=== PATIENT | female | born 1965 | race Caucasian/White ===

== ENCOUNTER 2016-11-04 15:52 | Emergency (ER) | payer BC ==
[2016-11-04] MEDS ORDERED: Sodium Chloride 0.9% 400 ML IV ONE (16:39)
[2016-11-04] MEDS ORDERED: Sodium Chloride 0.9% 1,000 ML IV SCH (16:45)
[2016-11-04] MEDS ORDERED: Sodium Chloride 0.9% 10 ML Syringe FLUSH PRN (16:45)
[2016-11-04] MEDS ORDERED: Cyproheptadine 4 MG Tab PO STA (16:46)
[2016-11-04] MEDS ORDERED: LORazepam 2 MG/ML MDV IVPUSH ONE (16:57)
[2016-11-04] MEDS ORDERED: LORazepam 2 MG/ML MDV ONE (16:57)
[2016-11-04 19:26] VITALS: BP 118/72
[2016-11-04] MEDS ORDERED: Cyproheptadine 4 MG Tab PO ONE (19:45)
[2016-11-04] MEDS ORDERED: Cyproheptadine 4 MG Tab ONE (19:45)
[2016-11-04] MEDS ORDERED: LORazepam 1 MG Tab PO ONE (19:46)
[2016-11-04] MEDS ORDERED: LORazepam 1 MG Tab ONE (19:46)
--- NOTE | 2016-11-05 09:37 | ER ---
DATE SEEN: 11/04/2016 TIME SEEN: The patient was seen at 1610. HISTORY OF PRESENT ILLNESS: This is a 51-year-old woman who presents with bizarre constellation of symptoms, "last two days of low voice", nausea since 0430 this a.m. She woke this morning not feeling very good. She had pizza, hamburger and spinach at home last night. They were all made with fresh ingredients. Fever of 100 this morning. She was seen in the clinic 10/30/2016, had a fever at that time. She feels lightheaded and feels like she is in a fog. On approximately 10/28/2016 the patient's Lexapro was changed from 10 mg to 20 mg daily. Since then, she has not felt well. She has a significant past medical history of intolerance to BuSpar, Paxil, and Effexor. MEDICATIONS: Atenolol 25 mg daily, levothyroxine 100 mcg daily. At one point, she had gone up to 130 mcg from 75 mg and she did not tolerate this; consequently 8 months ago was decreased to 100 mcg. Lexapro now 20 mg daily. ALLERGIES: She has extensive allergies which are all related to SSRIs. Lexapro, BuSpar, Zoloft, venlafaxine, all these cause tingling, numbness, blushing, surges of flushing, fast heart rate, and lightheadedness. The patient smokes half a pack of cigarettes a day for the past 40 years. Has a daily beer. Last night had a beer. Other significant allergies, a long list: Bacitracin, cefaclor, cephalexin, chloramphenicol, corticotropin, erythromycin base, methimazole, neomycin, penicillins, polymyxin, promethazine, and sulfa. REVIEW OF SYSTEMS: Negative except as noted above in the HPI. The patient denies having any fever. PHYSICAL EXAMINATION: VITAL SIGNS: Blood pressure 157/89, heart rate 73, respirations 20, oxygen saturation 100%, temperature 36.7 degrees. GENERAL: The patient has a low-pitched voice, has somewhat dark-skinned pigment of skin. She is attended by her significant other. HEENT: PERRLA intact. Pharynx without abnormality. No erythema. No cervical adenopathy. No bruits in neck. No thyromegaly. Absent thyroid, thyroid scar of thyroidectomy noted. LUNGS: Coarse breath sounds. No wheezes. HEART: S1, S2. No tachycardia. ABDOMEN: Mild voluntary guarding. Bowel sounds normal. No CVA percussion tenderness. Pelvic not done. Rectal not performed. EXTREMITIES: Lower extremities without pedal edema. No stasis dermatitis. NEURO: Deep tendon reflexes hypoactive upper and lower extremities. No evidence for hyperreflexia. Muscle strength in upper and lower extremities normal. While I was performing the exam, the patient she experienced a sudden onset of shortness of breath, flushing of her chest without diaphoresis, without tachycardia. She said, "Oh, I'm gonna lose it. I need to lie down." She talked loudly. She was very apprehensive and expressed a feeling of doom. She noted increased abdominal discomfort and increasing shortness of breath, although she was able to speak and talk to me. She did not have any stridor. No intraoral angioedema, pharyngeal erythema, wheezes, or rales in the lungs. At the onset, her symptoms were very suggestive of serotonin syndrome. However, the stigmata of tachycardia, hypertension, diaphoresis, and elevated temperature were absent, so I felt this was an adverse allergic reaction to the increased dose of Lexapro; she having a serotonin-like syndrome. I spoke to Poison Control. They felt strongly that she was not having a serotonin syndrome; however, could be allergy-related process. As I got off the phone, the patient had several recurrences of the same episode, with extensive anxiety. The patient has not used other medications or chemicals that would fit into the category of serotonergic or that would precipitate serotonin syndrome, i.e., amphetamines, cocaine, MDMA, L-DOPA, Ecstasy, Demerol, tramadol, pentazocine, tricyclics, Kurtis's wort, Zofran, metoclopramide, valproate, carbamazepine, sibutramine. The patient was treated with normal saline flush 500 mL, cyproheptadine 4 mg orally. Immediately after she had this, she became markedly agitated. She also experienced extensive shaking which began to relent in 2 minutes, almost as fast as they occurred, after she received 1 mg of lorazepam IV. Within a half hour, all her symptoms abated. This flushing, shortness of breath, and apprehension relented (she does not have a history of panic attacks or anxiety attacks). She was so please to feel better. She pass urine on several occasions, more than ususual, and she thanked me on many occasions and was so appreciative she was finally feeling better. ASSESSMENT: 1. Serotonin-like syndrome, symptoms with flushing, apprehension, lightheadedness, shortness of breath, difficulty breathing. 2. Allergic,type I, reaction. No evidence for anaphylaxis or angioedema. 3. Smoker. 4. Confusion secondary to the drug-mediated effect of Lexapro. 5. Four medicines which she does not tolerate, SSRI or NaSSA. 6. Status post thyroidectomy. 7. No evidence for thyroid storm. She is on Synthroid and her thyroid was removed. She at one time had Graves. 8. Rule out ectopic thyroid causing symptoms. I did not perform a thyroid scan, but that is something that may need to be pursued later if she has recurrent symptoms. She apparently had thyroid studies done at the clinic last week 9. The patient is not using Kurtis's Wort that would cause serotonin syndrome. PLAN: The patient will take one more dose of cyproheptadine at 2300 to 2400 hours this evening, 4 mg. Also she has Ativan available should she have recurrent spells that she experienced today. She needs a TSH and further thyroid studies; free T4 and free T3. Rule out ectopic thyroid causing hypothyroidism symptoms. There is no evidence for myocardial ischemia or myocardial infarction. Follow up with doctor in a week or earlier if worse. /[id number] MARIE/BABAR BRANDT
== END 2016-11-04 19:20 | disposition home or self-care (01) ==
LOC: FB.ED 15:52
DX: R41.0 Disorientation, unspecified (principal); R42 Dizziness and giddiness; R06.02 Shortness of breath; T78.40XA Allergy, unspecified, initial encounter; F17.200 Nicotine dependence, unspecified, uncomplicated
CPT/HCPCS: 80305; 81001; 93005; 96361; 96374; 99285; A9270; J2060; J7040; J7050

== ENCOUNTER 2017-04-21 04:56 | Emergency (ER) | payer BC ==
[2017-04-21] MEDS ORDERED: Ketorolac 60 MG/2 ML SDV IM ONE (05:09)
[2017-04-21] MEDS ORDERED: Morphine 2 MG/ML Syringe IM ONE (05:09)
[2017-04-21] MEDS ORDERED: Acetaminophen/oxyCODONE 325-5 MG Tab PO ONE (06:52)
--- NOTE | 2017-04-21 06:52 | EDM.PDOC ---
ED HPI GENERAL MEDICAL PROBLEM - General Chief Complaint: Upper Extremity Injury/Pain Stated Complaint: RT SIDE PAIN Time Seen by Provider: 04/21/17 04:56 Source of Information: Reports: Patient, Significant Other History Limitations: Reports: Physical Impairment - History of Present Illness INITIAL COMMENTS - FREE TEXT/NARRATIVE: 51 years old w f came to the ed with her SO 16 after she fell of a 6 foot ladder. She smokes 1 PPD, drinks 4 time a week. Pt is complaining of severe r rib and shoulder pain, refusing initially to be examined. No N/V/D, SOB or any other acute medical issue at this time. BP 130/84 pulse 94, Puls ox 97% on RA RR 17 Onset: Unknown/Unsure Onset Date: 04/20/17 Onset Time: 20:00 Duration: Hour(s): Location: Reports: Chest, Upper Extremity, Right Quality: Reports: Ache, Pressure, Stabbing Severity: Moderate right shoulder and back Pain Score (Numeric/FACES): 10 - Related Data Allergies Allergy/AdvReac Type Severity Reaction Status Date / Time bacitracin Allergy Other Verified 11/04/16 16:06 [From Neosporin ([id number])] bacitracin zinc Allergy Other Verified 11/04/16 16:06 [From Neosporin ([id number])] buspirone HCl [From BuSpar] Allergy Other Verified 11/04/16 16:06 cefaclor [From Ceclor] Allergy Other Verified 11/04/16 16:06 cephalexin Allergy Other Verified 11/04/16 16:06 chloramphenicol Allergy Other Verified 11/04/16 16:06 [From Chloromycetin] chloramphenicol sod succ Allergy Other Verified 11/04/16 16:06 [From Chloromycetin] corticotropin Allergy Other Verified 11/04/16 16:06 [From Acthar H.P.] erythromycin base Allergy Other Verified 11/04/16 16:06 escitalopram [From Lexapro] Allergy Other Verified 11/04/16 18:43 lorazepam [From Ativan] Allergy Difficulty Verified 04/21/17 07:20 Breathing methimazole Allergy Other Verified 11/04/16 16:06 neomycin sulfate Allergy Other Verified 11/04/16 16:06 [From Neosporin ([id number])] paroxetine HCl [From Paxil] Allergy Other Verified 11/04/16 16:06 Penicillins Allergy Other Verified 11/04/16 16:06 polymyxin B Allergy Other Verified 11/04/16 16:06 [From Neosporin ([id number])] promethazine HCl Allergy Other Verified 11/04/16 16:06 [From Phenergan] sertraline HCl [From Zoloft] Allergy Other Verified 11/04/16 16:06 Sulfa (Sulfonamide Allergy Other Verified 11/04/16 16:06 Antibiotics) venlafaxine HCl Allergy Other Verified 11/04/16 16:06 [From Effexor] allergic to all SSRI Allergy Other Uncoded 11/04/16 18:44 Home Meds: Home Meds Atenolol 25 mg PO DAILY 11/04/16 [History] Levothyroxine [Synthroid] 100 mcg PO DAILY 11/04/16 [History] Acetaminophen/oxyCODONE [Percocet 325-5 MG] 1 each PO Q6HR PRN #7 tab 04/21/17 [ Rx] Albuterol [IJD: Ventolin HFA] 2 puff INH .TWICE DAILY PRN #1 gm 04/21/17 [Rx] Ibuprofen [Motrin] 600 mg PO TID PRN #20 tab 04/21/17 [Rx] Past Medical History HEENT History: Reports: Impaired Vision, Other (See Below) Other HEENT History: WEARS EYEGLASSES Psychiatric History: Reports: Anxiety, Depression, Panic Attack Endocrine/Metabolic History: Reports: Hypothyroidism Other Endocrine/Metabolic History: Grave's Dse - Infectious Disease History Infectious Disease History: Reports: Chicken Pox, Measles, Mumps - Past Surgical History Endocrine Surgical History: Reports: Thyroidectomy Social & Family History - Family History Family Medical History: Noncontributory - Tobacco Use Smoking Status *Q: Current Every Day Smoker Years of Tobacco use: 30 Packs/Tins Daily: 1 Used Tobacco, but Quit: No Second Hand Smoke Exposure: Yes - Caffeine Use Caffeine Use: Reports: Coffee, Soda - Alcohol Use Days Per Week of Alcohol Use: 4 Number of Drinks Per Day: 4 Total Drinks Per Week: 16 - Recreational Drug Use Recreational Drug Use: No Review of Systems - Review of Systems Review Of Systems: See Below Constitutional: Reports: Weakness Eyes: Reports: No Symptoms Ears: Reports: No Symptoms Nose: Reports: No Symptoms Mouth/Throat: Reports: No Symptoms Respiratory: Reports: Pleuritic Chest Pain Cardiovascular: Reports: No Symptoms GI/Abdominal: Reports: No Symptoms Genitourinary: Reports: No Symptoms Musculoskeletal: Reports: Muscle Pain Skin: Reports: No Symptoms Neurological: Reports: No Symptoms Psychiatric: Reports: No Symptoms ED EXAM, GENERAL - Physical Exam Exam: See Below Exam Limited By: Other (rib pain) General Appearance: Alert, WD/WN, Mild Distress, Thin Eye Exam: Bilateral Eye: Normal Inspection Ears: Normal External Exam Ear Exam: Bilateral Ear: Auricle Normal Nose: Normal Inspection, Normal Mucosa, No Blood Throat/Mouth: Normal Inspection, Normal Lips, Normal Teeth Head: Atraumatic, Normocephalic Neck: Normal Inspection, Supple, Non-Tender, Full Range of Motion Respiratory/Chest: Decreased Breath Sounds (due to rip pain r side) Cardiovascular: Normal Peripheral Pulses, Regular Rate, Rhythm, No Edema Peripheral Pulses: 1+: Radial (L), Radial (R) GI/Abdominal: Normal Bowel Sounds, Soft, Non-Tender, No Organomegaly (Female) Exam: Deferred Rectal (Female) Exam: Deferred Back Exam: Normal Inspection, Full Range of Motion Extremities: Normal Inspection, Normal Range of Motion, Non-Tender, No Pedal Edema Neurological: Alert, Oriented, CN II-XII Intact, Normal Cognition, No Motor/ Sensory Deficits, Other Psychiatric: Normal Affect, Normal Mood Skin Exam: Warm, Dry, Intact, Normal Color, No Rash Lymphatic: No Adenopathy Course - Vital Signs Text/Narrative:: 51 years old w f came to the ed with her SO 16 after she fell of a 6 foot ladder. She smokes 1 PPD, drinks 4 time a week. Pt is complaining of severe r rib and shoulder pain, refusing initially to be examined. No N/V/D, SOB or any other acute medical issue at this time. BP 130/84 pulse 94, Puls ox 97% on RA RR 17 PE: Righ 7th rib tenderness. r shoulder tenderness Imaging: non displaced right 7th rib. R sided atelectasis Impression: non displaced right 7th rib. R sided atelectasis Tx: Morphine, Toradol, Percocet, Sprometer, Ice application Reexam: Improved Plan: D/C with instructions Last Recorded V/S: Last Vital Signs Temp 36.4 C 04/21/17 05:00 Pulse 93 04/21/17 07:30 Resp 16 04/21/17 07:30 BP 117/61 04/21/17 07:30 Pulse Ox 95 04/21/17 07:30 - Orders/Labs/Meds Orders: Active Orders 24 hr Category Date Time Status Cooling Warming Measures [RC] ASDIRECTED Care 04/21/17 05:13 Active Incentive Spirometry [RT Incentive Spirometry] [RC] Care 04/21/17 07:24 Active ASDIRECTED Ribs 2V w Chest Rt [CR] Stat Exams 04/21/17 05:10 Taken Shoulder Comp Rt [CR] Stat Exams 04/21/17 05:55 Taken Ice Bag [Ice Therapy] [OM.PC] Routine Oth 04/21/17 05:13 Ordered Meds: Medications Discontinued Medications Generic Name Dose Route Start Last Admin Trade Name Freq PRN Reason Stop Dose Admin Ketorolac Tromethamine 60 mg 04/21/17 05:09 04/21/17 05:21 Toradol IM 04/21/17 05:10 60 mg ONETIME ONE Administration Morphine Sulfate 2 mg 04/21/17 05:09 04/21/17 05:20 Morphine IM 04/21/17 05:10 2 mg ONETIME ONE Administration Oxycodone/Acetaminophen 2 tab 04/21/17 06:52 04/21/17 07:00 Percocet 325-5 Mg PO 04/21/17 06:53 2 tab ONETIME ONE Administration Departure - Departure Time of Disposition: 07:31 Disposition: Home, Self-Care 01 Condition: Good Clinical Impression: Atelectasis of right lung Right rib fracture Qualifiers: Encounter type: initial encounter Rib fracture type: single rib Fracture type: closed Qualified Code(s): S22.31XA - Fracture of one rib, right side, initial encounter for closed fracture - Discharge Information Prescriptions: Acetaminophen/oxyCODONE [Percocet 325-5 MG] 1 each PO Q6HR PRN #7 tab PRN Reason: for severe pain only Albuterol [IJD: Ventolin HFA] 2 puff INH .TWICE DAILY PRN #1 gm PRN Reason: cough, sob Ibuprofen [Motrin] 600 mg PO TID PRN #20 tab PRN Reason: fro moderate pain Instructions: Rib Fracture, [id number] Referrals: PCP,None [Primary Care Provider] - Forms: ED Department Discharge, ED Return to Work/School Form Additional Instructions: Please take Percocet for severe pain only, Motrin for moderate pain, please use spirometer as recommended, follow instructions for rib fx's. Please follow up with your doctor in 3 days, please come back to the ed if your symptoms get worse acutely - My Orders Last 24 Hours: My Active Orders 04/21/17 05:10 Ribs 2V w Chest Rt [CR] Stat 04/21/17 05:13 Cooling Warming Measures [RC] ASDIRECTED Ice Bag [Ice Therapy] [OM.PC] Routine 04/21/17 05:55 Shoulder Comp Rt [CR] Stat 04/21/17 07:24 Incentive Spirometry [RT Incentive Spirometry] [RC] ASDIRECTED - Assessment/Plan Last 24 Hours: My Active Orders 04/21/17 05:10 Ribs 2V w Chest Rt [CR] Stat 04/21/17 05:13 Cooling Warming Measures [RC] ASDIRECTED Ice Bag [Ice Therapy] [OM.PC] Routine 04/21/17 05:55 Shoulder Comp Rt [CR] Stat 04/21/17 07:24 Incentive Spirometry [RT Incentive Spirometry] [RC] ASDIRECTED
[2017-04-21 07:40] VITALS: BP 117/61
--- NOTE | 2017-04-21 10:44 | CR ---
INDICATION: Trauma. RIGHT SHOULDER: Three views of the right shoulder revealed mild degenerative changes at the acromioclavicular joint with no evidence of a fracture, dislocation, or other significant bone or joint abnormality. KARLY
== END 2017-04-21 07:50 | disposition home or self-care (01) ==
LOC: FB.ED 04:56
DX: S22.31XA Fracture of one rib, right side, initial encounter for closed fracture (principal); H54.7 Unspecified visual loss; F17.210 Nicotine dependence, cigarettes, uncomplicated; J98.11 Atelectasis; E03.9 Hypothyroidism, unspecified; Z88.8 Allergy status to other drugs, medicaments and biological substances; Z79.899 Other long term (current) drug therapy; Z88.2 Allergy status to sulfonamides; Z88.0 Allergy status to penicillin; W11.XXXA Fall on and from ladder, initial encounter; Z88.1 Allergy status to other antibiotic agents
CPT/HCPCS: 71101; 73030; 94150; 96372; 99283; A9270; J1885; J2270

== ENCOUNTER 2017-05-25 19:24 | Emergency (ER) | payer BC ==
[2017-05-25 20:36] VITALS: BP 153/89
[2017-05-25] MEDS ORDERED: Diphtheria,Pertussis(Acell),Tetanus Vaccine 0.5 ML SDV IM ONE (20:40)
--- NOTE | 2017-05-25 20:57 | EDM.PDOC ---
ED HPI GENERAL MEDICAL PROBLEM - General Stated Complaint: THUMP LAC Time Seen by Provider: 05/25/17 20:53 Source of Information: Reports: Patient History Limitations: Reports: No Limitations - History of Present Illness INITIAL COMMENTS - FREE TEXT/NARRATIVE: c/o R thumb lac pt cut thumb with a knife, Td unknown, does not want sutures, good apposition of margins Right Hand Pain Score (Numeric/FACES): 4 - Related Data Allergies Allergy/AdvReac Type Severity Reaction Status Date / Time bacitracin Allergy Other Verified 11/04/16 16:06 [From Neosporin ([id number])] bacitracin zinc Allergy Other Verified 11/04/16 16:06 [From Neosporin ([id number])] buspirone HCl [From BuSpar] Allergy Other Verified 11/04/16 16:06 cefaclor [From Ceclor] Allergy Other Verified 11/04/16 16:06 cephalexin Allergy Other Verified 11/04/16 16:06 chloramphenicol Allergy Other Verified 11/04/16 16:06 [From Chloromycetin] chloramphenicol sod succ Allergy Other Verified 11/04/16 16:06 [From Chloromycetin] corticotropin Allergy Other Verified 11/04/16 16:06 [From Acthar H.P.] erythromycin base Allergy Other Verified 11/04/16 16:06 escitalopram [From Lexapro] Allergy Other Verified 11/04/16 18:43 lorazepam [From Ativan] Allergy Difficulty Verified 04/21/17 07:20 Breathing methimazole Allergy Other Verified 11/04/16 16:06 neomycin sulfate Allergy Other Verified 11/04/16 16:06 [From Neosporin ([id number])] paroxetine HCl [From Paxil] Allergy Other Verified 11/04/16 16:06 Penicillins Allergy Other Verified 11/04/16 16:06 polymyxin B Allergy Other Verified 11/04/16 16:06 [From Neosporin ([id number])] promethazine HCl Allergy Other Verified 11/04/16 16:06 [From Phenergan] sertraline HCl [From Zoloft] Allergy Other Verified 11/04/16 16:06 Sulfa (Sulfonamide Allergy Other Verified 11/04/16 16:06 Antibiotics) venlafaxine HCl Allergy Other Verified 11/04/16 16:06 [From Effexor] allergic to all SSRI Allergy Other Uncoded 11/04/16 18:44 Home Meds: Home Meds Atenolol 25 mg PO DAILY 11/04/16 [History] Levothyroxine [Synthroid] 100 mcg PO DAILY 11/04/16 [History] Acetaminophen/oxyCODONE [Percocet 325-5 MG] 1 each PO Q6HR PRN #7 tab 04/21/17 [ Rx] Albuterol [IJD: Ventolin HFA] 2 puff INH .TWICE DAILY PRN #1 gm 04/21/17 [Rx] Ibuprofen [Motrin] 600 mg PO TID PRN #20 tab 04/21/17 [Rx] Past Medical History HEENT History: Reports: Impaired Vision, Other (See Below) Other HEENT History: WEARS EYEGLASSES Psychiatric History: Reports: Anxiety, Depression, Panic Attack Endocrine/Metabolic History: Reports: Hypothyroidism Other Endocrine/Metabolic History: Grave's Dse - Infectious Disease History Infectious Disease History: Reports: Chicken Pox, Measles, Mumps - Past Surgical History Endocrine Surgical History: Reports: Thyroidectomy Social & Family History - Family History Family Medical History: Noncontributory - Tobacco Use Smoking Status *Q: Current Every Day Smoker Years of Tobacco use: 30 Packs/Tins Daily: 1 Used Tobacco, but Quit: No Second Hand Smoke Exposure: Yes - Caffeine Use Caffeine Use: Reports: Coffee, Soda - Alcohol Use Days Per Week of Alcohol Use: 4 Number of Drinks Per Day: 4 Total Drinks Per Week: 16 - Recreational Drug Use Recreational Drug Use: No ED ROS GENERAL - Review of Systems Review Of Systems: See Below Constitutional: Reports: No Symptoms HEENT: Reports: No Symptoms Respiratory: Reports: No Symptoms Cardiovascular: Reports: No Symptoms Endocrine: Reports: No Symptoms GI/Abdominal: Reports: No Symptoms : Reports: No Symptoms Musculoskeletal: Reports: No Symptoms Skin: Reports: Wound Neurological: Reports: No Symptoms Psychiatric: Reports: No Symptoms Hematologic/Lymphatic: Reports: No Symptoms Immunologic: Reports: No Symptoms ED EXAM, SKIN/RASH Exam: See Below Exam Limited By: No Limitations General Appearance: Alert Skin: Other (R thumb with curvilinear 1 cm lac over fingerpad, edges well apposed, did not allow flap to be peeled back, adhering well with good alignment and no swell) Course - Vital Signs Last Recorded V/S: Last Vital Signs Temp 36.6 C 05/25/17 20:34 Pulse 86 05/25/17 20:34 Resp 19 05/25/17 20:34 BP 153/89 H 05/25/17 20:34 Pulse Ox 98 05/25/17 20:34 - Orders/Labs/Meds Orders: Active Orders 24 hr Category Date Time Status Vaccines to be Administered [RC] PER UNIT ROUTINE Care 05/25/17 20:41 Active Meds: Medications Discontinued Medications Generic Name Dose Route Start Last Admin Trade Name Jus PRN Reason Stop Dose Admin Diphtheria/Tetanus/Acell Pertussis 0.5 ml 05/25/17 20:40 Adacel IM 05/25/17 20:41 .ONCE ONE Departure - Departure Time of Disposition: 20:55 Disposition: Home, Self-Care 01 Condition: Good Clinical Impression: Thumb laceration - Discharge Information Referrals: Tea Villarreal, OTOLARYNGOLOGY PHYSICIAN [Primary Care Provider] - Additional Instructions: Keep clean and dry and covered with dressing. Do not put pressure on thumb for one week to allow it to heal. While risk of infection is low, see a physician the same day for any increase in redness, pain, swelling, warmth, fever or drainage. Do not get wet for a week. Allow steri strips to fall off on their own when they are ready. Call your Physician or Return to Emergency Department if: * Your condition worsens in any way. * You develop fever greater than 100.4. * You have vomitting that does not stop with medications. * You have pain that is not controlled with medications. - My Orders Last 24 Hours: My Active Orders 05/25/17 20:41 Vaccines to be Administered [RC] PER UNIT ROUTINE - Assessment/Plan Last 24 Hours: My Active Orders 05/25/17 20:41 Vaccines to be Administered [RC] PER UNIT ROUTINE
== END 2017-05-25 21:38 | disposition home or self-care (01) ==
LOC: FB.ED 19:24
DX: S61.011A Laceration without foreign body of right thumb without damage to nail, initial encounter (principal); F32.9 Major depressive disorder, single episode, unspecified; F41.9 Anxiety disorder, unspecified; F17.210 Nicotine dependence, cigarettes, uncomplicated; E03.9 Hypothyroidism, unspecified; Z88.8 Allergy status to other drugs, medicaments and biological substances; Z88.0 Allergy status to penicillin; Z88.2 Allergy status to sulfonamides; Z79.899 Other long term (current) drug therapy; Z23 Encounter for immunization; Z88.1 Allergy status to other antibiotic agents; W26.0XXA Contact with knife, initial encounter
CPT/HCPCS: 90471; 90715; 99282

== ENCOUNTER 2020-08-27 23:49 | Emergency (ER) | payer BC ==
--- NOTE | 2020-08-28 00:18 | EDM.PDOC ---
ED HPI GENERAL MEDICAL PROBLEM - General Chief Complaint: Genitourinary Problem Stated Complaint: BLADDER INFECTION Time Seen by Provider: 08/28/20 03:44 Source of Information: Reports: Patient History Limitations: Reports: No Limitations - History of Present Illness INITIAL COMMENTS - FREE TEXT/NARRATIVE: 55 yo Female who presented to the ER with h/o increased Frequency of raymond turition, urgency and hematuria. Started earlier today and got progressively worse. Also c/o suprapubic discomfort which she rates as 10/10. No fever, chest pain. She has had UTI before but reports that current symptoms are worse. No Flank pain. Presented to the ER due to worsening symptoms. Onset: Other (started yesterday) Onset Date: 08/27/20 Duration: Day(s): (started yesterday), Constant, Getting Worse Location: Reports: Pelvis Quality: Reports: Burning Severity: Severe Associated Symptoms: Reports: Nausea/Vomiting burning upon urination Pain Score (Numeric/FACES): 9 - Related Data Allergies Allergy/AdvReac Type Severity Reaction Status Date / Time bacitracin Allergy Other Verified 08/28/20 00:03 [From Neosporin ([id number])] bacitracin zinc Allergy Other Verified 08/28/20 00:03 [From Neosporin ([id number])] buspirone HCl [From BuSpar] Allergy Other Verified 08/28/20 00:03 cefaclor [From Ceclor] Allergy Other Verified 08/28/20 00:03 cephalexin Allergy Other Verified 08/28/20 00:03 chloramphenicol Allergy Other Verified 08/28/20 00:03 [From Chloromycetin] chloramphenicol sod succ Allergy Other Verified 08/28/20 00:03 [From Chloromycetin] corticotropin Allergy Other Verified 08/28/20 00:03 [From Acthar H.P.] erythromycin base Allergy Other Verified 08/28/20 00:03 escitalopram [From Lexapro] Allergy Other Verified 08/28/20 00:03 lorazepam [From Ativan] Allergy Difficulty Verified 08/28/20 00:03 Breathing methimazole Allergy Other Verified 08/28/20 00:03 neomycin sulfate Allergy Other Verified 08/28/20 00:03 [From Neosporin ([id number])] paroxetine HCl [From Paxil] Allergy Other Verified 08/28/20 00:03 Penicillins Allergy Other Verified 08/28/20 00:03 polymyxin B Allergy Other Verified 08/28/20 00:03 [From Neosporin ([id number])] promethazine HCl Allergy Other Verified 08/28/20 00:03 [From Phenergan] sertraline HCl [From Zoloft] Allergy Other Verified 08/28/20 00:03 Sulfa (Sulfonamide Allergy Other Verified 08/28/20 00:03 Antibiotics) venlafaxine HCl Allergy Other Verified 08/28/20 00:03 [From Effexor] allergic to all SSRI Allergy Other Uncoded 11/04/16 18:44 Home Meds: Home Meds Levothyroxine [Synthroid] 100 mcg PO DAILY 11/04/16 [History] Ibuprofen [Motrin] 600 mg PO TID PRN #20 tab 04/21/17 [Rx] hydrOXYzine HCL [hydrOXYzine] 10 mg PO Q6H PRN #5 tab 08/13/18 [Rx] FLUoxetine HCl [Prozac] 20 mg PO DAILY 08/28/20 [History] Meloxicam 15 mg PO DAILY 08/28/20 [History] Past Medical History HEENT History: Reports: Impaired Vision, Other (See Below) Other HEENT History: WEARS EYEGLASSES Cardiovascular History: Reports: Hypertension Respiratory History: Reports: Other (See Below) Other Respiratory History: chronic smoker since 16 years old and consumes 1 pack a day. Gastrointestinal History: Reports: GERD BREAD PANNER History: Reports: Other BREAD PANNER History: Musculoskeletal History: Reports: Arthritis, Fracture Other Musculoskeletal History: Hx fx L rx ribs Neurological History: Reports: Concussion Psychiatric History: Reports: Anxiety, Depression, Panic Attack Endocrine/Metabolic History: Reports: Hypothyroidism, Other (See Below) Other Endocrine/Metabolic History: Grave's Dse - Infectious Disease History Infectious Disease History: Reports: Chicken Pox, Measles, Mumps - Past Surgical History HEENT Surgical History: Reports: Naso-Sinus Surgery, Oral Surgery Cardiovascular Surgical History: Reports: None GI Surgical History: Reports: Colonoscopy, EGD Endocrine Surgical History: Reports: Thyroidectomy Social & Family History - Family History Family Medical History: No Pertinent Family History - Tobacco Use Tobacco Use Status *Q: Current Every Day Tobacco User Years of Tobacco use: 39 Packs/Tins Daily: 1 Second Hand Smoke Exposure: Yes - Caffeine Use Caffeine Use: Reports: Coffee - Alcohol Use Days Per Week of Alcohol Use: 7 Number of Drinks Per Day: 8 Total Drinks Per Week: 56 - Recreational Drug Use Recreational Drug Use: No ED ROS GENERAL - Review of Systems Review Of Systems: See Below Constitutional: Reports: Malaise, Weakness HEENT: Reports: No Symptoms Respiratory: Reports: No Symptoms Cardiovascular: Reports: No Symptoms Endocrine: Reports: No Symptoms GI/Abdominal: Reports: Nausea, Vomiting : Reports: Dysuria, Frequency, Hematuria, Urgency Musculoskeletal: Reports: No Symptoms Skin: Reports: No Symptoms Neurological: Reports: No Symptoms Psychiatric: Reports: No Symptoms Hematologic/Lymphatic: Reports: No Symptoms Immunologic: Reports: No Symptoms ED EXAM, RENAL/ - Physical Exam Exam: See Below Exam Limited By: No Limitations General Appearance: Alert, WD/WN, No Apparent Distress Eye Exam: Bilateral Eye: PERRL Ears: Normal External Exam, Normal Canal, Hearing Grossly Normal, Normal TMs Nose: Normal Inspection, Normal Mucosa, No Blood Throat/Mouth: Normal Inspection, Normal Lips, Normal Teeth, Normal Oropharynx Head: Atraumatic, Normocephalic Neck: Normal Inspection, Supple, Non-Tender, Full Range of Motion Respiratory/Chest: No Respiratory Distress, Lungs Clear, Normal Breath Sounds Cardiovascular: Normal Peripheral Pulses, Regular Rate, Rhythm, No Edema, No Gallop, No JVD GI/Abdominal: Normal Bowel Sounds, Soft, Non-Tender, No Organomegaly Back Exam: Normal Inspection, Full Range of Motion Extremities: Normal Inspection, Normal Range of Motion, Non-Tender, No Pedal Edema Neurological: Alert, Oriented, CN II-XII Intact, Normal Cognition, Normal Gait Psychiatric: Normal Affect, Normal Mood Skin Exam: Warm, Dry, Intact, Normal Color, No Rash Lymphatic: No Adenopathy Course - Vital Signs Last Recorded V/S: Last Vital Signs Temp 36.4 C 08/28/20 04:00 Pulse 88 08/28/20 04:00 Resp 16 08/28/20 04:00 BP 118/75 08/28/20 04:00 Pulse Ox 98 08/28/20 04:00 - Orders/Labs/Meds Orders: Active Orders 24 hr Category Date Time Status Abdomen Pelvis wo Cont [CT] Stat Exams 08/28/20 00:32 Taken CULTURE URINE [RM] Stat Lab 08/28/20 00:16 Received Labs: Laboratory Tests 08/27/20 08/28/20 08/28/20 Range/Units 23:53 00:40 00:40 WBC 12.5 H (3.0-10.3) x10-3/uL RBC 4.54 (3.60-5.20) x10(6)uL Hgb 14.1 (11.4-15.5) g/dL Hct 42.4 (34.2-48.2) % MCV 93.5 (76.7-100.5) fL MCH 31.0 (23.9-33.9) pg MCHC 33.1 (31.9-34.8) g/dL RDW 12.7 (12.3-16.5) % Plt Count 254 (151-488) x10(3)uL MPV 7.2 (7.1-12.4) fL Neut % (Auto) 84.0 H (30.8-76.2) % Lymph % (Auto) 9.2 L (18.4-52.1) % Howard % (Auto) 6.0 (4.4-15.7) % Eos % (Auto) 0.5 L (0.6-8.1) % Baso % (Auto) 0.3 (0.2-1.5) % Neut # (Auto) 10.5 H (1.5-6.3) x10-3/uL Lymph # (Auto) 1.1 (1.0-4.4) x10-3/uL Howard # (Auto) 0.7 (0.3-1.0) x10-3/uL Eos # (Auto) 0.1 (0.0-0.8) x10-3/uL Baso # (Auto) 0.0 (0.0-0.1) x10-3/uL Sodium 135 (135-145) mmol/L Potassium 3.6 (3.5-5.3) mmol/L Chloride 99 L (100-110) mmol/L Carbon Dioxide 26 (21-32) mmol/L BUN 12 (7-18) mg/dL Creatinine 0.9 (0.55-1.02) mg/dL Est Cr Clr Drug Dosing 56.79 mL/min Estimated GFR (MDRD) > 60 (>60) BUN/Creatinine Ratio 13.3 (9-20) Glucose 92 (80-116) mg/dL Calcium 8.1 L (8.6-10.2) mg/dL Total Bilirubin 0.4 (0.1-1.3) mg/dL AST 40 H (5-25) IU/L ALT 50 H (12-36) U/L Alkaline Phosphatase 70 (56-112) IU/L C-Reactive Protein (0.5-0.9) mg/dL Total Protein 7.0 (6.0-8.0) g/dL Albumin 4.3 (3.5-5.2) g/dL Globulin 2.7 g/dL Albumin/Globulin Ratio 1.6 Urine Color Red (YELLOW) Urine Appearance Cloudy (CLEAR) Urine pH 5.0 (5.0-6.5) Ur Specific [place] 1.020 (1.010-1.025) Urine Protein 30 H (NEGATIVE) mg/dL Urine Glucose (UA) Normal (NORMAL) mg/dL Urine Ketones Negative (NEGATIVE) mg/dL Urine Occult Blood Large H (NEGATIVE) Urine Nitrite Negative (NEGATIVE) Urine Bilirubin Negative (NEGATIVE) Urine Urobilinogen Normal (NEGATIVE) mg/dL Ur Leukocyte Esterase Large H (NEGATIVE) Urine RBC 30-40 H (0-5) Urine WBC 20-30 H (0-5) Ur Squamous Epith Cells Occasional (NS,R,O) Urine Bacteria Few H (NS) 08/28/20 Range/Units 00:40 WBC (3.0-10.3) x10-3/uL RBC (3.60-5.20) x10(6)uL Hgb (11.4-15.5) g/dL Hct (34.2-48.2) % MCV (76.7-100.5) fL MCH (23.9-33.9) pg MCHC (31.9-34.8) g/dL RDW (12.3-16.5) % Plt Count (151-488) x10(3)uL MPV (7.1-12.4) fL Neut % (Auto) (30.8-76.2) % Lymph % (Auto) (18.4-52.1) % Howard % (Auto) (4.4-15.7) % Eos % (Auto) (0.6-8.1) % Baso % (Auto) (0.2-1.5) % Neut # (Auto) (1.5-6.3) x10-3/uL Lymph # (Auto) (1.0-4.4) x10-3/uL Howard # (Auto) (0.3-1.0) x10-3/uL Eos # (Auto) (0.0-0.8) x10-3/uL Baso # (Auto) (0.0-0.1) x10-3/uL Sodium (135-145) mmol/L Potassium (3.5-5.3) mmol/L Chloride (100-110) mmol/L Carbon Dioxide (21-32) mmol/L BUN (7-18) mg/dL Creatinine (0.55-1.02) mg/dL Est Cr Clr Drug Dosing mL/min Estimated GFR (MDRD) (>60) BUN/Creatinine Ratio (9-20) Glucose (80-116) mg/dL Calcium (8.6-10.2) mg/dL Total Bilirubin (0.1-1.3) mg/dL AST (5-25) IU/L ALT (12-36) U/L Alkaline Phosphatase (56-112) IU/L C-Reactive Protein 0.2 L (0.5-0.9) mg/dL Total Protein (6.0-8.0) g/dL Albumin (3.5-5.2) g/dL Globulin g/dL Albumin/Globulin Ratio Urine Color (YELLOW) Urine Appearance (CLEAR) Urine pH (5.0-6.5) Ur Specific [place] (1.010-1.025) Urine Protein (NEGATIVE) mg/dL Urine Glucose (UA) (NORMAL) mg/dL Urine Ketones (NEGATIVE) mg/dL Urine Occult Blood (NEGATIVE) Urine Nitrite (NEGATIVE) Urine Bilirubin (NEGATIVE) Urine Urobilinogen (NEGATIVE) mg/dL Ur Leukocyte Esterase (NEGATIVE) Urine RBC (0-5) Urine WBC (0-5) Ur Squamous Epith Cells (NS,R,O) Urine Bacteria (NS) Meds: Medications Discontinued Medications Generic Name Dose Route Start Last Admin Trade Name Freq PRN Reason Stop Dose Admin Diphenhydramine HCl 25 mg 08/28/20 00:34 08/28/20 00:44 Benadryl IVPUSH 08/28/20 00:35 25 mg ONETIME ONE Administration Sodium Chloride 1,000 mls @ 1,000 mls/hr 08/28/20 00:30 08/28/20 02:51 Normal Saline IV 1,000 mls/hr .BOLUS MARIAH Administration Levofloxacin/Dextrose 500 mg/ 100 mls @ 100 mls/hr 08/28/20 00:34 08/28/20 00:44 Premix IV 08/28/20 01:33 100 mls/hr ONETIME ONE Administration Ketorolac Tromethamine 30 mg 08/28/20 00:33 08/28/20 00:43 Toradol IVPUSH 08/28/20 00:34 30 mg ONETIME ONE Administration Ondansetron HCl 8 mg 08/28/20 00:33 08/28/20 00:44 Zofran IVPUSH 08/28/20 00:34 8 mg ONETIME ONE Administration Departure - Departure Time of Disposition: 05:42 Disposition: Home, Self-Care 01 Condition: Good Clinical Impression: UTI (urinary tract infection), UTI, Urinary tract infectious disease - Discharge Information *PRESCRIPTION DRUG MONITORING PROGRAM REVIEWED*: No *COPY OF PRESCRIPTION DRUG MONITORING REPORT IN PATIENT JITENDRA: No Instructions: Urinary Tract Infection, Adult, [id number] Referrals: Tea Villarreal, NUTRITION SERVICES AIDE [Primary Care Provider] - Forms: ED Department Discharge, ED Return to Work/School Form Additional Instructions: Follow with PCP Stay hydrated Tylenol or Ibuprofen for pain Return if symptoms worsen Call your Physician or Return to Emergency Department if: * Your condition worsens in any way. * You develop fever greater than 100.4. * You have vomitting that does not stop with medications. * You have pain that is not controlled with medications. Sepsis Event Note (ED) - Evaluation Sepsis Screening Result: No Definite Risk - Focused Exam Vital Signs: Vital Signs Temp Pulse Resp BP Pulse Ox 08/28/20 04:00 36.4 C 88 16 118/75 98 08/28/20 02:00 95 15 122/73 98 08/28/20 00:00 36.2 C 107 H 16 122/76 97 - My Orders Last 24 Hours: My Active Orders 08/28/20 00:16 CULTURE URINE [RM] Stat 08/28/20 00:32 Abdomen Pelvis wo Cont [CT] Stat - Assessment/Plan Last 24 Hours: My Active Orders 08/28/20 00:16 CULTURE URINE [RM] Stat 08/28/20 00:32 Abdomen Pelvis wo Cont [CT] Stat
[2020-08-28] MEDS ORDERED: Ketorolac 30 MG/ML SDV IVPUSH ONE (00:33)
[2020-08-28] MEDS ORDERED: Ondansetron 4 MG/2 ML SDV IVPUSH ONE (00:33)
[2020-08-28] MEDS ORDERED: diphenhydrAMINE 50 MG/ML SDV IVPUSH ONE (00:34)
[2020-08-28] MEDS ORDERED: Levofloxacin/Dextrose 5%-Water 500 MG in Premix Bag 1 BAG IV ONE (00:34)
[2020-08-28] MEDS: Sodium Chloride 0.9% 1,000 ML IV SCH ×2 (00:44→02:51)
[2020-08-28 06:46] VITALS: BP 123/77; PULSE 95
== END 2020-08-28 06:10 | disposition home or self-care (01) ==
LOC: FB.ED 23:49
DX: N39.0 Urinary tract infection, site not specified (principal); I10 Essential (primary) hypertension; F41.9 Anxiety disorder, unspecified; F32.9 Major depressive disorder, single episode, unspecified; F17.210 Nicotine dependence, cigarettes, uncomplicated; M19.90 Unspecified osteoarthritis, unspecified site; E03.9 Hypothyroidism, unspecified; Z88.1 Allergy status to other antibiotic agents; Z88.8 Allergy status to other drugs, medicaments and biological substances; Z88.0 Allergy status to penicillin; Z88.2 Allergy status to sulfonamides; Z79.899 Other long term (current) drug therapy
CPT/HCPCS: 36415; 74176; 80053; 81001; 85025; 86140; 87086; 87088; 87186; 96365; 96375; 99284; 99284-25; J1200; J1885; J1956; J2405; J7030

== ENCOUNTER 2024-10-08 14:50 | Emergency (ER) | payer OTHER, BC ==
[2024-10-08 15:03] VITALS: BP 150/88
[2024-10-08] MEDS: Lidocaine/Epineph/Tetracaine 3 ML Syringe TOP ONE (15:10)
[2024-10-08] MEDS: Diphtheria,Pertussis(Acell),Tetanus Vaccine 0.5 ML Syringe IM ONE (16:02)
[2024-10-08 17:25] VITALS: PULSE 82
== END 2024-10-08 16:21 | disposition home or self-care (01) ==
LOC: FB.ED 14:50
DX: S61.213A Laceration without foreign body of left middle finger without damage to nail, initial encounter (principal); I10 Essential (primary) hypertension; E03.9 Hypothyroidism, unspecified; F17.210 Nicotine dependence, cigarettes, uncomplicated; Z88.1 Allergy status to other antibiotic agents; Z88.8 Allergy status to other drugs, medicaments and biological substances; Z88.0 Allergy status to penicillin; Z88.2 Allergy status to sulfonamides; Z79.890 Hormone replacement therapy; Z79.899 Other long term (current) drug therapy; Z23 Encounter for immunization; W45.8XXA Other foreign body or object entering through skin, initial encounter
CPT/HCPCS: 12001; 90471; 90715; 99283; A9270